=== PATIENT | male | born 1960 | race Asian ===

== ENCOUNTER 2021-05-07 12:58 | Inpatient (IN) | payer OTHER, SELFPAY ==
[~2021-05-07] VITALS: Ht 180.3 cm; Wt 86.2 kg
[2021-05-07 13:04] VITALS: BP_SYST 176
[2021-05-07 13:43] LABS: ANION GAP 10 (5-15); CALCIUM 9.6 mg/dL (8.4-11.0); CHLORIDE 102 mmol/L (98-107); CREATININE 1.13 mg/dL (0.55-1.30); GLUCOSE 138 mg/dL (70-99); POTASSIUM 3.8 mmol/L (3.5-5.1); SODIUM SERUM 139 mmol/L (136-145); UREA NITROGEN, BLOOD 20 mg/dL (8-21)
[2021-05-07 13:49] LABS: BASOPHILS % (AUTO) 0.2 % (0.0-2.0); EOSINOPHILS # (AUTO) 0.2 K/uL (0.0-0.4); EOSINOPHILS % (AUTO) 2.4 % (0.0-4.0); HEMATOCRIT 42.3 % (36-54); HEMOGLOBIN 14.3 g/dL (14.0-18.0); LYMPHOCYTES % (AUTO) 30.2 % (20.5-51.5); MEAN CORPUSCULAR HEMOGLOBIN 31 pg (27-31); MEAN CORPUSCULAR HGB CONC 34 % (32-36); MEAN CORPUSCULAR VOLUME 91 fL (79.0-98.0); MONOCYTES # (AUTO) 0.5 K/uL (0.0-1.0); MONOCYTES % (AUTO) 8.3 % (1.7-9.3); NEUTROPHILS # (AUTO) 3.9 K/uL (1.8-7.7); NEUTROPHILS % (AUTO) 58.9 % (40.0-70.0); PLATELET COUNT (AUTO) 189 K/uL (130-430); RED BLOOD CELL COUNT(AUTO) 4.65 MIL/uL (4.2-6.2); WHITE BLOOD COUNT (AUTO) 6.6 K/uL (4.8-10.8)
[2021-05-07 13:50] LABS: GFR AFRICAN AMERICAN 85 mL/min (>90)
[2021-05-07 13:52] LABS: ALANINE AMINOTRANSFERASE 32 U/L (12-78); ALBUMIN 3.8 g/dL (3.4-4.8); ASPARTATE AMINOTRANSFERASE 21 U/L (10-37); TOTAL BILIRUBIN 0.3 mg/dL (0.0-1.0)
[2021-05-07] MEDS ORDERED: LIP10 PO (15:56)
[2021-05-07] MEDS ORDERED: MELO15TA13 PO (15:56)
[2021-05-07] MEDS ORDERED: VALS80TA2 PO (15:56)
[2021-05-07 18:41] VITALS: BP_SYST 141
[2021-05-07 18:45] VITALS: BP_SYST 141
[2021-05-07 20:41] VITALS: BP_SYST 142
[2021-05-07] MEDS ORDERED: cloNIDine HCL 0.1 MG TABLET PO PRN (22:30)
[2021-05-07] MEDS ORDERED: ACETAMINOPHEN 325 MG TABLET PO PRN (22:30)
[2021-05-07] MEDS ORDERED: MELOXICAM 7.5 MG TABLET PO PRN (22:30)
[2021-05-07] MEDS ORDERED: TEMAZEPAM 15 MG CAPSULE PO PRN (22:30)
[2021-05-08 01:44] VITALS: BP_SYST 129
[2021-05-08 08:08] VITALS: BP_SYST 147
[2021-05-08 08:29] LABS: CALCIUM 9.6 mg/dL (8.4-11.0); CREATININE 1.02 mg/dL (0.55-1.30); FREE T4 (FREE THYROXINE) 1.1 ng/dl (0.8-1.5); THYROID STIMULATING HORMONE 2.23 uIu/mL (0.36-3.74)
[2021-05-08] MEDS ORDERED: ATORVASTATIN 10 MG TABLET PO SCH (09:00)
[2021-05-08] MEDS ORDERED: LOSARTAN POTASSIUM 50 MG TABLET (COZAAR) PO SCH (09:00)
[2021-05-08 11:36] VITALS: BP_SYST 145
[2021-05-08 15:14] VITALS: BP_SYST 145
[2021-05-08 16:34] VITALS: BP_SYST 118
== END 2021-05-08 22:02 | disposition home or self-care (01) | DRG 310 ==
LOC: SED 12:58 → STU 15:48
PROVIDERS: ADMIT Internal Medicine; ATTEND Internal Medicine
DX: I45.10 Unspecified right bundle-branch block (principal); E78.5 Hyperlipidemia, unspecified; F41.9 Anxiety disorder, unspecified; I49.9 Cardiac arrhythmia, unspecified; K52.9 Noninfective gastroenteritis and colitis, unspecified; Z20.822 Contact with and (suspected) exposure to COVID-19; I10 Essential (primary) hypertension; Z90.49 Acquired absence of other specified parts of digestive tract; Z79.899 Other long term (current) drug therapy
CPT/HCPCS: 36415; 71045; 80048; 80053; 80061; 83735; 83880; 84439; 84443; 84484; 85025; 93005; 93306; 99285; G0378